=== PATIENT | female | born 1990 | race Caucasian/White ===

== ENCOUNTER 2017-05-20 01:40 | Emergency (ER) | payer MEDICAID ==
[~2017-05-20] VITALS: Ht 157.5 cm; Wt 88.2 kg
[~2017-05-20 01:40] MED LIST: CLIN-79 PO; CYCL-1 PO; IBUP-1986 PO; ONDA4TAB12 PO
[2017-05-20] MEDS ORDERED: HYDR-3686 PO (02:13)
[2017-05-20 02:17] VITALS: BP 147/96
== END 2017-05-20 02:20 | disposition home or self-care (01) ==
LOC: ER 01:41
DX: F41.9 Anxiety disorder, unspecified (principal); F32.9 Major depressive disorder, single episode, unspecified; F15.10 Other stimulant abuse, uncomplicated; Z79.899 Other long term (current) drug therapy
CPT/HCPCS: 99284

== ENCOUNTER 2021-11-02 16:16 | Emergency (ER) | payer MEDICAID ==
[~2021-11-02] VITALS: Ht 157.5 cm; Wt 75.0 kg
[~2021-11-02 16:16] MED LIST changes: +CIPR-260 PO; -CLIN-79 PO; +CLIN150C8 PO; +CLON-527 PO
[2021-11-02 16:22] VITALS: BP 136/87
[2021-11-02] MEDS ORDERED: dexamethasone sod phosphate 10mg/ml inj IM STA (16:56)
[2021-11-02] MEDS ORDERED: mupirocin 2% ointment 22GM TP STA (17:13)
--- NOTE | 2021-11-02 17:13 | NUR ---
im given strep swab sent to lab
--- NOTE | 2021-11-02 17:31 | NUR ---
strep + per lab
[2021-11-02] MEDS ORDERED: MUPI22OI30 TOP (17:35)
[2021-11-02] MEDS ORDERED: AMOX-117 PO (17:35)
== END 2021-11-02 18:08 | disposition home or self-care (01) ==
LOC: ER 16:16
DX: J02.0 Streptococcal pharyngitis (principal); F15.20 Other stimulant dependence, uncomplicated
CPT/HCPCS: 87880; 96372; 99283; J1100

== ENCOUNTER 2024-02-02 16:06 | Emergency (ER) | payer MEDICAID ==
[~2024-02-02] VITALS: Ht 157.5 cm; Wt 93.0 kg
[~2024-02-02 16:06] MED LIST changes: +ARIP5TAB53 PO; -CIPR-260 PO; -CLIN150C8 PO; -CLON-527 PO; -CYCL-1 PO; +FLUO-1 PO; +HYDR-3686 PO; -IBUP-1986 PO; +METH-603 PO; -ONDA4TAB12 PO; +TRAZ-256 PO
[2024-02-02] MEDS: normal saline 1000ML IV soln IVB ONE (16:41)
[2024-02-02 16:57] LABS: BASOPHILS % (AUTO) 0.3 % (0-1); EOSINOPHILS # (AUTO) 0.1 X10'3 (0-0.9); EOSINOPHILS % (AUTO) 0.5 % (0-6); HEMATOCRIT 40.5 % (35.0-45.0); HEMOGLOBIN 13.5 g/dl (12.0-16.0); LYMPHOCYTES # (AUTO) 1.8 X10'3 (1.1-4.8); LYMPHOCYTES % (AUTO) 15.5 % (21-51); MEAN CORPUSCULAR HEMOGLOBIN 30.2 PG (27.0-31.0); MEAN CORPUSCULAR HGB CONC 33.2 g/dL (33.0-36.5); MEAN CORPUSCULAR VOLUME 91.1 FL (78-98); MEAN PLATELET VOLUME 7.3 FL (7.4-10.4); MONOCYTES # (AUTO) 0.8 X10'3 (0-0.9); MONOCYTES % (AUTO) 6.5 % (2-12); NEUTROPHILS # (AUTO) 8.9 X10'3 (1.8-7.7); NEUTROPHILS % (AUTO) 77.2 % (42-75); PLATELET COUNT 276 X10'3 (140-440); RED BLOOD COUNT 4.45 X10'6 (4.20-5.60); RED CELL DISTRIBUTION WIDTH 13.8 % (11.5-14.5); WHITE BLOOD COUNT 11.5 X10'3 (4.5-11.0)
[2024-02-02 17:11] LABS: ALANINE AMINOTRANSFERASE 25 U/L (12-78); ALBUMIN 3.7 G/DL (3.4-5.0); ALBUMIN/GLOBULIN RATIO 0.9 (1.1-1.5); ALKALINE PHOSPHATASE 67 IU/L (46-116); ANION GAP 9 (8-16); ASPARTATE AMINO TRANSFERASE 16 U/L (10-37); BILIRUBIN,TOTAL 0.1 MG/DL (0.1-1.0); BLOOD UREA NITROGEN 23 MG/DL (7-18); BUN/CREATININE RATIO 21.3 (10.0-20.0); CALCIUM 8.6 MG/DL (8.5-10.1); CHLORIDE 104 MMOL/L (99-107); CREATININE 1.08 MG/DL (0.40-0.90); GLUCOSE 127 MG/DL (70-104); POTASSIUM 4.1 MMOL/L (3.5-5.1); SODIUM 140 MMOL/L (135-145); TOTAL CARBON DIOXIDE 27.1 MMOL/L (24-32); TOTAL PROTEIN 7.8 G/DL (6.4-8.2); eCRCL 58 ML/MIN; eGFR 58 ML/MIN
[2024-02-02 17:49] VITALS: BP 146/97; PULSE 111; RESP 16; TEMP 98.4; O2SAT 96
[2024-02-02 18:16] LABS: URINE AMPHETAMINE SCREEN NEGATIVE (Neg); URINE BARBITUATE SCREEN NEGATIVE (Neg); URINE BENZODIAZEPINES SCREEN NEGATIVE (Neg); URINE CANNABINOID SCREEN POSITIVE (Neg); URINE COCAINE SCREEN NEGATIVE (Neg); URINE METHADONE SCREEN NEGATIVE (Neg); URINE OPIATE SCREEN NEGATIVE (Neg); URINE PHENCYCLIDINE SCREEN NEGATIVE (Neg)
== END 2024-02-02 17:51 | disposition home or self-care (01) ==
LOC: ER 16:07
DX: T40.411A Poisoning by fentanyl or fentanyl analogs, accidental (unintentional), initial encounter (principal); F41.9 Anxiety disorder, unspecified; F32.A Depression, unspecified; F15.90 Other stimulant use, unspecified, uncomplicated; Z98.890 Other specified postprocedural states; Z79.899 Other long term (current) drug therapy
CPT/HCPCS: 36415; 80053; 80305; 85025; 96360; 99283; J7030

== ENCOUNTER 2024-02-06 13:46 | Emergency (ER) | payer MEDICAID ==
[~2024-02-06] VITALS: Ht 157.5 cm; Wt 93.2 kg
[2024-02-06 14:47] VITALS: BP 108/74; PULSE 78; RESP 20; TEMP 97.8; O2SAT 98
== END 2024-02-06 14:51 | disposition home or self-care (01) ==
LOC: ER 13:46
DX: T40.411A Poisoning by fentanyl or fentanyl analogs, accidental (unintentional), initial encounter (principal); R07.81 Pleurodynia; F41.9 Anxiety disorder, unspecified; F32.A Depression, unspecified; F15.90 Other stimulant use, unspecified, uncomplicated; Z79.899 Other long term (current) drug therapy; Y92.89 Other specified places as the place of occurrence of the external cause
CPT/HCPCS: 99283